=== PATIENT | female | born 1975 | race Caucasian/White ===

== ENCOUNTER 2025-06-29 21:52 | Inpatient (IN) | payer OTHER ==
[2025-06-29 22:35] VITALS: BMI 23.3
[2025-06-29] MEDS ORDERED: MAG HYDROX/AL HYDROX/SIMETH 30 ML UNIT-DOSE CUP PO PRN (22:44)
[2025-06-29] MEDS ORDERED: NALOXONE (NARCAN) HCL 4 MG/0.1 ML SPRAY NS PRN (22:44)
[2025-06-29] MEDS ORDERED: BENZOCAINE/MENTHOL (CHLORASEPTIC ) LOZENGE MM PRN (22:44)
[2025-06-29] MEDS ORDERED: IBUPROFEN 400 MG TABLET (FP) PO PRN (22:44)
[2025-06-29] MEDS ORDERED: hydrOXYzine PAMOATE 25 MG CAPSULE (FP) PO PRN (22:44)
[2025-06-29] MEDS ORDERED: DICYCLOMINE HCL 10 MG CAPSULE PO PRN (22:44)
[2025-06-29] MEDS ORDERED: BISMUTH SUBSALICYLATE 524 MG/30 ML PO PRN (22:44)
[2025-06-29] MEDS ORDERED: ONDANSETRON *ODT* 4 MG TABLET SL PRN (22:44)
[2025-06-29] MEDS ORDERED: BENZONATATE 200 MG CAPSULE PO PRN (22:44)
[2025-06-29] MEDS ORDERED: IBUPROFEN 600 MG TABLET (FP) PO PRN (22:44)
[2025-06-29] MEDS ORDERED: P-EPHED 60MG/TRIPROLIDI 2.5MG TABLET PO PRN (22:44)
[2025-06-29] MEDS ORDERED: POLYETHYLENE GLYCOL (HEALTHYLAX) 3350 17 GM PACKET PO PRN (22:44)
[2025-06-29] MEDS ORDERED: MAGNESIUM HYDROX 2400MG/30ML ORAL SUSPENSION 30 ML CUP PO PRN (22:44)
[2025-06-29] MEDS ORDERED: LOPERAMIDE HCL 2 MG CAPSULE PO PRN (22:44)
[2025-06-29] MEDS ORDERED: NICOTINE POLACRILEX 2 MG GUM BUC PRN (22:44)
[2025-06-29] MEDS ORDERED: guaiFENesin 600 MG TABLET.ER (FP) PO PRN (22:44)
[2025-06-29] MEDS ORDERED: NICOTINE POLACRILEX 2 MG LOZENGE BC PRN (22:44)
[2025-06-29] MEDS ORDERED: METHOCARBAMOL 500 MG TABLET ONE (23:27)
[2025-06-29] MEDS: METHOCARBAMOL 500 MG TABLET PO PRN (23:31)
[2025-06-30] MEDS: PRENATAL VITAMINS W/ FOLIC ACID TABLET (FP) PO SCH (09:41)
[2025-06-30] MEDS: LEVOTHYROXINE NA 25 MCG TABLET (FP) PO SCH (10:10)
[2025-06-30] MEDS: ESCITALOPRAM OXALATE 10 MG TABLET PO SCH (10:10)
[2025-06-30 10:27] LABS: MCHC 32.0 g/dl (32.2-35.5); MEAN CELL VOLUME 94.1 fl (79.4-94.8); MEAN PLT VOLUME 11.3 fl (9.4-12.3); RDW 15.0 % (12.2-17.1)
[2025-06-30 10:47] LABS: GLUCOSE,RANDOM 110 mg/dL (74-106); TOT PROT 5.7 g/dl (6.4-8.2)
[2025-06-30 10:48] LABS: CO2 24 mmol/L (21-32)
[2025-06-30 10:49] LABS: ALK PHOS 128 U/L (40-150)
[2025-06-30 10:52] LABS: CREATININE 0.93 mg/dL (0.55-1.3); SGOT/AST 35 U/L (5-34); SGPT/ALT 29 U/L (0-55)
[2025-06-30] MEDS: ATOMOXETINE HCL 60 MG CAPSULE PO SCH (13:36)
[2025-06-30] MEDS: NICOTINE 14 MG/24 HOURS TOPICAL PATCH TD SCH (14:30)
[2025-06-30] MEDS: ACETAMINOPHEN 325 MG TABLET (FP) PO PRN (18:49)
[2025-06-30] MEDS: ATORVASTATIN CA 10 MG TABLET (FP) PO SCH (21:12)
[2025-06-30] MEDS: MELATONIN 5 MG TABLETS PO SCH (21:12)
[2025-06-30] MEDS: THIAMINE 100 MG TABLET PO SCH (21:12)
[2025-06-30] MEDS: traZODone HCL 50 MG TABLET (FP) PO SCH (21:12)
[2025-07-01 10:05] VITALS: BP 139/95; PULSE 96; RESP 16; TEMP 97.8
== END 2025-07-01 09:26 | disposition home or self-care (01) | DRG 775 ==
LOC: YASAS 21:52 → Y6N 23:13
PROVIDERS: ADMIT Neuromusculoskeletal Medicine & OMM; ATTEND Allergy & Immunology
PROC: HZ2ZZZZ Detoxification Services for Substance Abuse Treatment (ICD-10-PCS; principal; 2025-06-29)
DX: F10.24 Alcohol dependence with alcohol-induced mood disorder (principal); F10.20 Alcohol dependence, uncomplicated; F17.210 Nicotine dependence, cigarettes, uncomplicated; F10.282 Alcohol dependence with alcohol-induced sleep disorder; F10.280 Alcohol dependence with alcohol-induced anxiety disorder; F32.A Depression, unspecified; F41.9 Anxiety disorder, unspecified; E03.9 Hypothyroidism, unspecified; Z85.3 Personal history of malignant neoplasm of breast; C79.51 Secondary malignant neoplasm of bone; C78.7 Secondary malignant neoplasm of liver and intrahepatic bile duct; Z90.12 Acquired absence of left breast and nipple
CPT/HCPCS: 36415; 80053; 80307; 85027; 86780; 93005; 93010